=== PATIENT | male | born 1990 | race Caucasian/White ===

== ENCOUNTER 2024-08-13 14:03 | Outpatient (AMB) | payer OTHER, SELFPAY ==
--- NOTE | 2024-08-13 14:04 | A.OFFPC_ITS ---
Vital Signs 08/13/24 14:13 Height 5 ft 10.47 in Weight 229 lb 8 oz BMI 32.5 BP 124/76 Blood Pressure Location Rt brachial Position Sitting Respiration 14 Pulse 75 Pulse Source Pulse Oximeter Pulse Oximetry (%) 97 Oxygen Delivery Method Room Air Intake Visit Reasons: Outreach Specialist /requesting PE Intake Note: New patient visit Turbo Electric Operator Required: No Turbo Electric Operator Name: New patient visit Allergies No Known Allergies Allergy (Verified 08/13/24 14:04) Medication List - Last Reconciled 08/13/24 by Madelaine Booth PA-C No Known Home Meds Tobacco use date assessed: 08/13/24 Dental Screening Dental Screen Date: 08/13/24 Did you have a dental visit in the last 12 months?: Yes Did you have a dental problem in the last 6 months where you did not have access to dental care?: No Was dental information given to patient?: Patient has dentist HPI Outreach Specialist /requesting PE HPI Details Pt is a 34 y/o male who presents today to [facility] care. He is transferring from [facility]. He states he thinks he had a history of prediabetes. Msk: He does complain today of left shoulder pain for one year. He states that it started after golfing and has worsened progressively over the year. He denies any arm weakness but with certain movements cause a lot of pain. Lifting above the head or reaching across is causing pain. Fam hx: Mother has uterine ca. Father has rectal ca at age 55, paternal grandfather colon at age 55. PFSH Surgical History (Updated 08/13/24 @ 14:21 by Nisha Watters CMA) S/P ACL surgery Family History (Updated 08/13/24 @ 14:22 by Nisha Watters CMA) Father Rectal cancer Alcoholism Paternal Grandfather Colon cancer Alcoholism Paternal Grandmother Type 1 diabetes Alcoholism Maternal Grandmother Lymph node cancer Alcoholism Mother Alcoholism Uterine cancer Paternal Grandfather Alcoholism Other Substance abuse Social History (Updated 08/13/24 @ 14:23 by Nisha Watters CMA) Housing: House Alcohol intake: former Patient Tobacco Use Status: Never used Tobacco e-Cigarette/Vaping Use: Never Used Second Hand Smoke Exposure: No Use of substances other than those prescribed or required for medical reasons: No Substance Use Type: Former Substance User and Marijuana service: No Current occupational status: employed Current occupation: Sales Current occupational exposures/hazards: No Cognitive needs: No Hearing needs: No Vision needs: No Questionnaire PHQ-9 Over the last 2 weeks, how often have you been bothered by any of the following problems? 1. Little interest or pleasure in doing things: not at all 2. Feeling down, depressed, or hopeless: not at all 3. Trouble falling or staying asleep, or sleeping too much: not at all 4. Feeling tired or having little energy: not at all 5. Poor appetite or overeating: not at all 6. Feeling bad about yourself - or that you are a failure or have let yourself or your family down: not at all 7. Trouble concentrating on things, such as reading the newspaper or watching television: not at all 8. Moving or speaking so slowly that other people could have noticed. Or the opposite - being so fidgety or restless that you have been moving around a lot more than usual: not at all 9. Thoughts that you would be better off or of hurting yourself in some way: not at all Total score: 0 Depression Screening Interpretation: Negative Depression Screening Done: Yes 45476 - PHQ-9 Billing: Yes Source: Developed by Drs. Javad Elkins, Rajni Peterson, Kana Holder and colleagues, with an educational anna from [employer]. Thrive Questionnaire Date Thrive assessed: 08/13/24 I am a: Patient What is your living situation today?: I have a steady place to live Within the past 12 months, did the food you bought not last and you didn't have the money to get more?: Never true Within the past 12 months, did you worry whether your food would run out before you got money to buy more?: Never true Do you have trouble paying for medicines?: No Do you have trouble getting transportation to medical appointments?: No Do you have trouble paying your heating and electricity bill?: No Do you have trouble taking care of your child, family member or friend?: No Do you have trouble with day-to-day activities such as bathing, preparing meals, shopping, managing finances, etc.?: No Are you currently unemployed and looking for a job?: No Are you interested in more education?: No Please select the resources that you would like help with: None Currently or been in a relationship where the following occur: No concerns reported THRIVE Score: 0 AUDIT C Alcohol Use Questionnaire (AUDIT-C) 1. How often do you have a drink containing alcohol?: Never 3. How often do you have six or more drinks on one occasion?: Never Total Score: 0 LASHONDA-7 AMB Questionnaire LASHONDA-7 Date LASHONDA - 7 assessed: 08/13/24 Feeling nervous, anxious, or on edge: 0 = Not at all Not being able to stop or control worryin = Not at all Worrying too much about different things: 0 = Not at all Trouble relaxin = Not at all Being so restless that it is hard to sit still: 0 = Not at all Becoming easily annoyed or irritable: 0 = Not at all Feeling afraid as if something awful might happen: 0 = Not at all Total LASHONDA-7 score (0-4 normal; 5-9 mild; 10-14 moderate; 15-21 severe): 0 Source: Developed by Drs. Javad Elkins, Rajni Peterson, Kana Holder and colleagues, with an educational anna from [employer] [facility] [employer]. LASHONDA-7 Assessment Billing LASHONDA-7 Assessment Tool: LASHONDA-7 Assessment 32664 Physical exam (Primary Care) Vital Signs: Last Vital Signs Pulse 75 08/13/24 14:13 Resp 14 08/13/24 14:13 BP 124/76 08/13/24 14:13 Pulse Ox 97 08/13/24 14:13 Oxygen Delivery Method Room Air 08/13/24 14:13 BMI result Body Mass Index 32.5 Tobacco/Smoking Status: Tobacco use Status Tobacco use date assessed 08/13/24 08/13/24 14:09 Patient Tobacco Use Status Never used Tobacco 08/13/24 14:23 e-Cigarette/Vaping Use Never Used 08/13/24 14:23 PHQ-9: PHQ-9 Score PHQ-9: Total score 0 08/13/24 14:21 Depression Screening Interpretation: Negative Thrive Assessment: Date of Thrive Assessment Date Thrive assessed 08/13/24 08/13/24 14:09 Currently or been in a relationship where the following occur: No concerns reported Const Orientation/consciousness: patient oriented x3 HENMT Ears: hearing grossly normal bilaterally and TM's normal bilaterally General nose exam: No nasal polyps present Face and sinus: Yes sinuses nontender Mouth: Normal oral and palatal mucosa present Eyes Pupils: Equal, round and reactive pupils present EOM: EOMs intact bilaterally Neck Neck: Yes full ROM and Yes no lymphadenopathy Thyroid: Thyroid normal Chest Chest palpation & inspection: normal inspection of the chest Resp Auscultation: clear to auscultation bilaterally Cardio Rate: regular rate Rhythm: regular rhythm Heart sounds: S1 normal heart sound present and S2 normal heart sound present Peripheral pulses: Peripheral pulses 2+ throughout GI Other: Soft, nontender Auscultation: normal bowel sounds Rectal Exam - Male: Yes deferred General: Yes no CVA tenderness Back/Spine/Pelvis Other: Nontender Back: no CVA tenderness Skin General skin exam: no rashes or lesions noted Neuro General: patient oriented x3, gait normal, CN's II-XI intact bilaterally and deep tendon reflexes 2+ bilaterally Cranial nerves: Yes Equal, round and reactive pupils present Motor exam (neuro): 5/5 motor strength present throughout Sensory Exam: double simultaneous stimulation for sensation normal Coordination: [id number] test normal and Romberg test negative Extrem General: Yes normal to inspection and Yes full ROM Psych Affect: normal affect Attitude: cooperative Thought process: Normal thought process present Thought content: Normal thought content present Insight: Good insight present (Psych) Judgement: Good judgement present (Psych) Coding Level of Care Code New Pt Prev Care 18-39yr(74725 Diagnoses Encounter for routine history and physical examination Z00.00 Skin lesion of back L98.9 Left shoulder pain M25.512 Additional Codes LASHONDA-7 Assessment Billing - LASHONDA-7 Assessment Tool: LASHONDA-7 Assessment 61751 ([id number]) PHQ-9 - 32459 - PHQ-9 Billing: Yes ([id number]) Assessment & Plan Assessment & Plan (1) Encounter for routine history and physical examination: Code(s): Z00.00 - Encounter for general adult medical examination without abnormal findi ngs Plan: Health maintenance reviewed. Labs ordered today. (2) Skin lesion of back: Code(s): L98.9 - Disorder of the skin and subcutaneous tissue, unspecified Category: Medical Plan: Referral to [facility] for a skin check (3) Left shoulder pain: Code(s): M25.512 - Pain in left shoulder Category: Medical Plan: X-ray ordered. Referral to ortho. Orders: Orders Lipid Panel Today M25.512 - Pain in left shoulder, R73.01 - Impaired fasting glucose, Z00.00 - Encounter for general adult medical examination without abnormal findings UA CC w/rflx Micro + Cult Today M25.512 - Pain in left shoulder, R73.01 - Impaired fasting glucose, Z00.00 - Encounter for general adult medical examination without abnormal findings, Z13.220 - Encounter for screening for lipoid disorders Comprehensive [place]. Panel Fast Today M25.512 - Pain in left shoulder, R73.01 - Impaired fasting glucose, Z00.00 - Encounter for general adult medical examination without abnormal findings Complete Blood Count Auto Diff Today M25.512 - Pain in left shoulder, R73.01 - Impaired fasting glucose, Z00.00 - Encounter for general adult medical examination without abnormal findings TSH reflex Free T4 Today M25.512 - Pain in left shoulder, R73.01 - Impaired fasting glucose, Z00.00 - Encounter for general adult medical examination without abnormal findings XR shoulder LT min 2V Today M25.512 - Pain in left shoulder, R73.01 - Impaired fasting glucose, Z00.00 - Encounter for general adult medical examination without abnormal findings Hemoglobin A1c Today R73.01 - Impaired fasting glucose Referrals Orthopedics Referral M25.512 - Pain in left shoulder Dermatology Referral L98.9 - Disorder of the skin and subcutaneous tissue, unspecified
[2024-08-13 14:13] VITALS: BP 124/76; PULSE 75; RESP 14; O2SAT 97; BMI 32.5
--- OUTSIDE RECORDS SUMMARY | 2024-08-13 16:54 | XMS_ITS | Patient Health Record ---
Author Organization [facility] Address [address] [place] [phone] Care Team Providers Care Gas Scrubber Operator Name Role Phone GALINA JOSÉ Primary Care Provider Sharri Roa Unavailable [phone] ALLERGIES No Known Allergies REASON FOR REFERRAL No Information MEDICATIONS Medication SIG (Take, Route, Frequency, Duration) Notes Start Date End Date Status Vitamin D3 125 MCG (5000 UT) 1 capsule Orally Once a day Not-Taking Milk Thistle Not-Jass ing Super B Complex Acti ve Clobetasol Propionate 0.05 % 1 application Externally Twice a day 11/03/2022 Active SOCIAL HISTORY Sex Assigned At : Social History Observation Description Sex Assigned At Male Household Question Answer Notes Marital status: Number of adults in household: 2 Number of children in household: 2 Sexual History Question Answer Notes Had sex in the past 12 months (vaginal, oral, or anal)? Yes with Women only Have you ever had a Sexually transmitted disease ? No Tobacco use other than smoking: Question Answer Notes Are you an other tobacco user? Yes C igar on occasion Section Notes: Lives in [place], [place] with & daughter (adopted) & son. Lives in [place] with & daughter (adopted) & son. Lives in [place] with & daughter (adopted) & son. Lives [place] with & daughter (adopted) & son. Lives [place] with & daughter (adopted) & son. Lives [place] with & daughter (adopted) & son. Lives in [place] with & daughter (adopted) & son. PROBLEMS Problem Type ICD Code Onset Dates Problem Status W/U Status Risk SNOMED Code Notes Problem Mixed hyperlipidemia (E78.2) Active confirmed 257412334 Problem Vitamin D deficiency (E55.9) Active confirmed 41447351 Problem Elevated liver enzymes (R74.8) Active confirmed 589830317 Problem Insulin resistance (E88.81) Active confirmed 607562015 Problem Kenyatta rash of groin (B37.89) Active confirmed 670608941 Problem Low platelet count (D69.6) Active confirmed 659910819 Problem Lichen planus (L43.9) Active confirmed 2223538 PLAN OF TREATMENT Future Test Test Name Order Date LIPID PANEL, STANDARD (7600) 11/03/2022 COMPREHENSIVE METABOLIC PANEL (95590) URIC ACID (905) 11/03/2022 CBC (INCLUDES DIFF/PLT) (6399) URINALYSIS, COMPLETE W/REFLEX TO CULTURE (3020) 11/03/2022 HEMOGLOBIN A1c (496) 11/03/2022 APOLIPOPROTEIN A1 (5223) 11/03/2022 APOLIPOPROTEIN B (5224) 11/03/2022 INSULIN (561) 11/03/2022 VITAMIN D,25-OH,TOTAL,IA [phone]) [phone] Insurance Providers Payer Name Payer Address Payer Phone Subscriber Number Group Number Insured Name Patient Relationship to Insured Coverage Start Date Coverage End Date [employer] [address] [place] [phone] [id number] INES DE SANTIAGO Self - patient is the insured MEDICAL (GENERAL) HISTORY Medical History History ICD Code lichen planus Surgical History Surgery Date(Month/Year) Rt knee ACL & Meniscus repair 2011
--- OUTSIDE RECORDS SUMMARY | 2024-08-13 16:55 | XMS_ITS ---
Author Organization [facility] Address [address] [place] [phone] Care Team Providers Care Growth Media Mixer Mushroom Name Role Phone GALINA JOSÉ Primary Care Provider Sharri Roa [phone] ALLERGIES No Known Allergies REASON FOR VISIT annual SOCIAL HISTORY Sex Assigned At : Social [...] igar on occasion Section Notes: Lives in [place], [place] with & daughter (adopted) & son. Encounters Encounter Location Date Provider Diagnosis [address] [phone] 08/02/2023 Sharri Roa PLAN OF TREATMENT No Information Progress Notes * INES DE SANTIAGODOB:1990 ([age] yo M)Acc No.[id number]:08/02/2023 Progress Note Patient:??INES DE SANTIAGO Provider:??Sharri Roa DNP :1990?Age:33 Y?Sex:Goyo lynn Date:08/02/2023 Phone: Address:[address] [place], [place] [id number] Pcp:GALINA JOSÉ Subjective: * Chief Complaints: * ?1. Annual. * HPI: ?Patient Care Team:?-??No other providers at this time.?? * Medical History:??Lichen ady nus. * Surgical History:??Rt knee A CL & Meniscus repair 2011. * Family History:??Father: ali ve, rectal cancer.??Mother: alive, No known health concerns.??Paternal Grandfather: , colon cancer.??Paternal Grandmother: alive, Type 1 Diabetes.??Maternal Grandfather: , Health history unknown.??Maternal Grandmother: , lymph node cancer.??3 sister(s) . 1 son(s) - healthy. .?? 3 older 1/2 sisters (mother side 47,50, 51). States all family members are heavy drinkers. * Social History:?Tobacco Use:??Tobacco use other than smoking??Are you an other tobacco user???Yes Cigar on occasion.?Sexual History:??Sexual History??Had sex in the past 12 months (vaginal, oral, or anal)???Yes,??with??Women only,??Have you ever had a Sexually transmitted disease???No.?Drugs/Alcohol:??Do you smoke marijuana?: Admits - in past, gummies. Do you drink alcohol?: Yes, 2-6 drinks/week (beer). ?Household:??Household??Marital status:??,??Number of adults in household:??2,??Number of children in household:??2.?Miscellaneous:??Occupation: Works in sales. ?Lives in [place], [place] with & daughter (adopted) & son. * Allergies:??N.K.D.A. Objective: Assessment: Plan: * Treatment: * Preventive Medicine:?CPE: Fall 2020 ; 07/28/22 at [facility] Colonoscopy: No Endoscopy: No Covid Vac: No Flu Vac: No 07/07/22- Uric Acid 6.5; hsCRP 1.2; Vitamin D 24; A1c 5.1%; insulin 16.3; glucose 92; Tcol 163; HDL 38; LDL 99; trigs 166; APO B 92; AST 35; ALT 65 10/31/22- Vitamin D 45; insulin 16.9; glucose 94; Tcol 188; HDL 41; LDL 129; trigs 82; APO B 96; AST 24; ALT 40; Hep C and HIV negative. Care Plan: * Problems:?? * Billing Information: * Visit Code:?? * Procedure Codes:?? * Sign off status: Pending * Provider:??Sharri Roa DNP Date:??02/2024 History and Physical Notes * HPI (History of Present Illness) Category Sub-Category Detail Notes Category Not es Patient Care Team - No other providers at t his time
== END 2024-08-13 14:45 | disposition home or self-care (01) ==
LOC: HO.HMCFM 14:04
PROVIDERS: PCP Physician Assistant; Visit Provider Physician Assistant
DX: Z00.00 Encounter for general adult medical examination without abnormal findings (principal); L98.9 Disorder of the skin and subcutaneous tissue, unspecified; M25.512 Pain in left shoulder

== ENCOUNTER → 2024-08-13 14:03 | Outpatient (BNVA) | payer OTHER, SELFPAY | PROVIDERS: PCP Physician Assistant; Visit Provider Physician Assistant | DX: Z00.01 Encounter for general adult medical examination with abnormal findings (principal); L98.9 Disorder of the skin and subcutaneous tissue, unspecified; M25.512 Pain in left shoulder | CPT/HCPCS: 96127 ==

== ENCOUNTER 2024-10-21 14:20 | Outpatient (REF) | payer OTHER, SELFPAY ==
--- NOTE | ~2024-10-21 | XR_ITS ---
EXAMINATION: XR SHOULDER, LEFT CLINICAL INFORMATION: M25.512 - Pain in left shoulder COMPARISON: None available. TECHNIQUE: AP neutral, scapular Y, and axillary views of the left shoulder. FINDINGS: AC joint is intact. There is mild degenerative change. There is no glenohumeral dislocation. Glenohumeral joint is unremarkable. XR/XR shoulder LT min 2V IMPRESSION: Mild AC joint arthropathy Electronically signed by: Radhames Alvarez MD 10/21/2024 03:35 PM EDT
== END 2024-10-21 14:21 | disposition home or self-care (01) ==
LOC: HO.HOSX 14:20
PROVIDERS: Visit Provider Physician Assistant
DX: M25.512 Pain in left shoulder (principal)
CPT/HCPCS: 73030

== ENCOUNTER 2024-10-21 15:11 | Outpatient (AMB) | payer OTHER, SELFPAY ==
--- NOTE | 2024-10-21 15:13 | A.OFFVIS_ITS ---
Vital Signs 10/21/24 15:29 Height 5 ft 10 in Weight 229 lb BMI 32.9 Intake Visit Reasons: New Pt - left shoulder pain Intake Note: Parth is a 34 year old male who presents today for a new patient evaluation of left shoulder pain. Patient states that he has had this pain for a few months. Patient reports that he is a active golf player and recently he noticed elevated discomfort.Patient states that his ROM is limited due to the pain. He states no numbness or tingling to report at this time. Patient then added that he did not seek physical therapy or injections. Patient reports that he did go to [facility] 05/17, states they did nothing for him. Patient stated that he was given muscle relaxers and had horrible side affects which gave heart palpuations and pain radiating down the arm. Allergies No Known Allergies Allergy (Verified 10/21/24 15:26) HPI HPI New Pt - left shoulder pain: Details: 34-year-old gentleman presents to the office today for left shoulder pain which has been present for several weeks. He has pain which is worse with overhead reaching and lifting. His discomfort is limiting his daily activities. He has not had any treatment to date. [facility] Surgical History S/P ACL surgery Family History (Updated 08/13/24 @ 14:22 by Nisha Watters SHIPBUILDING DRAFTSPERSON) Father Rectal cancer Alcoholism Paternal Grandfather Colon cancer Alcoholism Paternal Grandmother Type 1 diabetes Alcoholism Maternal Grandmother Lymph node cancer Alcoholism Mother Alcoholism Uterine cancer Paternal Grandfather Alcoholism Other Substance abuse Social History Housing: House Alcohol intake: former Patient Tobacco Use Status: Never used Tobacco e-Cigarette/Vaping Use: Never Used Second Hand Smoke Exposure: No Substance Use Type: Former Substance User and Marijuana service: No Current occupational status: employed Current occupation: Sales Current occupational exposures/hazards: No Cognitive needs: No Hearing needs: No Vision needs: No Review of Systems Const All systems reviewed & are unremarkable except as noted in HPI and below Physical Exam Vital Signs: BMI result Body Mass Index 32.9 Const General: cooperative and no acute distress Orientation/consciousness: patient oriented x3 Resp Effort & Inspection: normal respiratory effort and able to speak in complete sentences Cardio Peripheral pulses: Peripheral pulses 2+ throughout Neuro General: patient oriented x3 Extrem Other: Left shoulder normal to inspection. Full range of motion in all planes. Mild tenderness over the AC joint and proximal biceps tendon. Positive Perea. 5/5 rotator cuff strength neurovascularly intact. Results Reviewed Results Reviewed: X-rays of the left shoulder obtained in the office today and reviewed by me are negative for any acute or chronic abnormalities. Assessment & Plan Assessment & Plan (1) Tendonitis of left rotator cuff: Code(s): M75.82 - Other shoulder lesions, left shoulder Category: Medical Plan: We discussed options which include conservative management with physical therapy. He declined formal physical therapy at this time as he is quite active on his own. I did give him a prescription for naproxen to take twice a day for 2 weeks to help with acute flare-ups. If symptoms persist or worsen he can contact our office for formal physical therapy otherwise he will follow up as needed. Orders: Orders XR shoulder LT min 2V 10/21/24 M25.512 - Pain in left shoulder Medications: New naproxen 500 mg PO BID 60 tabs 3RF 30 days S93.409A - Sprain of unspecified ligament of unspecified ankle, initial encounter Coding Level of Care Code New Pt Level 3 (71447) Complex EM visit Add On G2211 Diagnoses Tendonitis of left rotator cuff M75.82
[2024-10-21 15:29] VITALS: BMI 32.9
== END 2024-10-21 15:58 | disposition home or self-care (01) ==
LOC: HO.HOS 15:12
PROVIDERS: PCP Physician Assistant; Visit Provider Physician Assistant
DX: M75.82 Other shoulder lesions, left shoulder (principal)
CPT/HCPCS: 99203

== ENCOUNTER → 2024-10-21 15:13 | Outpatient (BNV) | payer OTHER, SELFPAY | PROVIDERS: Visit Provider Radiology Diagnostic Radiology | DX: M25.512 Pain in left shoulder (principal) | CPT/HCPCS: 73030 ==

== ENCOUNTER 2024-10-30 07:50 | Outpatient (REF) | payer OTHER, SELFPAY | END 2024-10-30 07:51 | disposition home or self-care (01) | LOC: HO.HOSX 07:50 | PROVIDERS: Visit Provider Physician Assistant | DX: Z13.89 Encounter for screening for other disorder (principal) ==